=== PATIENT | female | born 1940 | race Caucasian/White ===

== ENCOUNTER 2020-08-12 15:15 | Outpatient (REF) | payer OTHER, SELFPAY ==
[2020-08-12 21:19] LABS: ALT 36 U/L (14-59); AST 27 U/L (15-37); Albumin 3.3 g/dL (3.4-5.0); Alkaline Phosphatase 249 U/L (46-116); BUN 44 mg/dL (7-18); Bilirubin, Total 0.6 mg/dL (0.2-1.0); CREATININE 0.9 mg/dL (0.55-1.02); Calcium 9.3 mg/dL (8.5-10.1); Chloride 99 mmol/L (98-107); Glucose 146 mg/dL (74-106); Potassium 4.5 mmol/L (3.5-5.1); Sodium 136 mmol/L (136-145); Total Protein 6.5 g/dL (6.4-8.2)
[2020-08-12 21:29] LABS: HCT 33.4 % (36.0-46.0); HGB 11.2 g/dL (11.2-15.7); MCH 30.9 pg (27.0-33.0); MCHC 33.5 % (32.0-36.0); MCV 92.3 fL (80-95); MPV 10.3 fL (8.0-11.0); Platelet Count 379 10^3/uL (130-400); RBC 3.62 10^6/uL (3.93-5.22); RDW 12.6 % (11.7-14.6); RDW-SD 42.6 fL
[2020-08-15 09:14] LABS: Prealbumin 37 mg/dL (20-40)
== END 2020-08-12 15:16 | disposition home or self-care (01) ==
LOC: NCHCN 15:15
PROVIDERS: Visit Provider Family Medicine
DX: I10 Essential (primary) hypertension (principal); C79.51 Secondary malignant neoplasm of bone
CPT/HCPCS: 80053; 85027; 84134